=== PATIENT | female | born 1990 | race Two or more races ===

== ENCOUNTER 2020-07-24 19:39 | Emergency (ER) | payer OTHER, SELFPAY ==
--- NOTE | ~2020-07-24 | XR_ITS ---
EXAMINATION: XR FOOT, RIGHT CLINICAL INFORMATION: Redness. Pain and swelling. COMPARISON: None TECHNIQUE: AP, lateral, and oblique views of the right foot. FINDINGS: No fracture or dislocation. Alignment is anatomic. Joint spaces are maintained. Dorsal soft tissue swelling of the forefoot. No ankle joint effusion. XR/XR foot RT min 3V IMPRESSION: Prominent soft tissue swelling of the forefoot. No osseous abnormality.
[2020-07-24 20:51] VITALS: BP 121/79; PULSE 81; RESP 18; TEMP 36.8; O2SAT 96; BMI 30.2
[2020-07-24 21:19] VITALS: BP 124/84; PULSE 77; RESP 18; TEMP 37.1; O2SAT 99
[2020-07-24 22:42] VITALS: BP 114/62; PULSE 75; RESP 18; TEMP 36.6; O2SAT 99
--- NOTE | 2020-07-24 23:02 | ED_ITS ---
HPI - General Adult General Chief complaint: General Medical Stated complaint: RT LEG SWOLLEN Time Seen by Provider: 07/24/20 23:01 Source: patient Mode of arrival: ambulatory History of Present Illness HPI narrative: 30-year-old female who presents with onset of small area of itchiness between the 2nd and 3rd toes of her right foot yesterday and throughout the night reports that it has increased to cover the top of her foot with increased swelling and onset of pain. Patient states that now her foot throbs when she places her foot down and that it is very painful on weight- bearing. 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 Otherwise, patient denies any underlying medical conditions and denies any prescribed medications, or fever/chills. Patient reports headache year approximately 2 weeks ago. Related Data Previous Rx's Medication Instructions Recorded cephalexin 500 mg PO Q12H 5 Days #10 cap 07/25/20 Allergies Allergy/AdvReac Type Severity Reaction Status Date / Time No Known Allergies Allergy Verified 07/24/20 20:50 Review of Systems Review of Systems: Pertinent positives and negatives as stated in HPI 10 point review systems is otherwise negative. PMFSH Past Medical History Source: nursing notes reviewed Medical History No known health problems Social History Social History Advance Directives: No Advance Directives Information Provided: Yes Physical Exam Vital Signs: Vital Signs: Last Vital Signs Temp 97.8 F 07/24/20 22:42 Pulse 75 07/24/20 22:42 Resp 18 07/24/20 22:42 BP 114/62 07/24/20 22:42 Pulse Ox 99 07/24/20 22:42 Body Mass Index 30.2 VITAL SIGNS: Reviewed. GENERAL: Well developed, well nourished, in no acute distress. HEAD: Normocephalic/atraumatic, EYES: PERRLA, EOMI OROPHARYNX: no oral lesions noted, posterior pharynx clear NECK: Supple, no adenopathy LUNGS: Normal breath sounds. No adventitious sounds or accessory muscle use. SpO2<99> CARDIOVASCULAR: Regular rate and rhythm without noted murmurs ABDOMEN: Soft, non-tender, non-distended with bowel sounds. RIGHT FOOT: Significant erythema, swelling to dorsal aspect of the foot with tenderness on palpation when squeezing across the MCPs as well as palpation across the dorsum, but denies any pain on palpation plantar/calcaneal/malleoli palpation, no evidence of skin breaks NEUROLOGIC: Alert and oriented x 4. Course Course Course Narrative: 30-year-old female with history and clinical presentation suggestive Cortez's neuroma,cellulitis. Review of imaging negative for any acute findings of bony abnormalities such as fractures or dislocations. Medical Decision Making Lab Data Labs: Lab Results 07/24/20 Range/Units 23:26 Urine Test NEGATIVE (NEGATIVE) Discharge Plan Discharge Clinical Impression: Cellulitis of foot Patient Disposition: Home, Self-Care Instructions: Cellulitis (ED) Additional Instructions: Isfz-lnu-phgorui Tylenol/ibuprofen as directed on the outside packaging for pain control. Application of ice for 5-10 minutes on unexposed skin, 3 to 4 times a day. Keep extremity elevated when possible and wear open shoes such as flip- flops/crocs. Follow-up with your primary care provider on Monday morning for re-evaluation. Do not hesitate to return to the emergency department should you develop any acute worsening of your symptoms. Prescriptions: New cephalexin 500 mg capsule 500 mg PO Q12H 5 Days Qty: 10 RF: 0 Referrals: Misha Cueva MD [Primary Care Provider] - 2 days (Re-evaluation of right dorsal foot cellulitis unclear etiology.)
[2020-07-24 23:38] LABS: UPreg QC Valid YES; Urine Pregnancy NEGATIVE (NEGATIVE)
[2020-07-25] MEDS: cephALEXin 500 MG CAPSULE PO (00:36)
== END 2020-07-25 00:45 | disposition home or self-care (01) ==
PROVIDERS: Emergency Provider Student in an Organized Health Care Education/Training Program; PCP Internal Medicine
DX: L03.115 Cellulitis of right lower limb (principal)
CPT/HCPCS: 73630; 81025; 99283; 99284

== ENCOUNTER 2020-11-09 09:43 | Outpatient (REF) | payer OTHER, SELFPAY ==
[2020-11-10 03:56] LABS: CT PCR NOT DETECTED (Not Detect.); NG PCR NOT DETECTED (Not Detect.)
[2020-11-10 09:40] LABS: BV Int Neg Control Negative (Negative); BV Int Pos Control Positive (Positive)
[2020-11-14 05:31] LABS: HPV 16 RNA NOT DETECTED (NOT DETECTED); HPV mRNA E6/E7 rflx Detected (Not Detected)
== END 2020-11-09 09:44 | disposition home or self-care (01) ==
LOC: HO.LAB 09:43
PROVIDERS: PCP Internal Medicine; Visit Provider Advanced Practice Midwife
DX: Z01.411 Encounter for gynecological examination (general) (routine) with abnormal findings (principal); Z11.51 Encounter for screening for human papillomavirus (HPV); Z11.3 Encounter for screening for infections with a predominantly sexual mode of transmission; R10.2 Pelvic and perineal pain; N92.6 Irregular menstruation, unspecified; Z20.2 Contact with and (suspected) exposure to infections with a predominantly sexual mode of transmission
CPT/HCPCS: 87480; 87491; 87510; 87591; 87624; 87625; 87660; 88142

== ENCOUNTER 2020-11-16 07:57 | Outpatient (REF) | payer OTHER, SELFPAY ==
[2020-11-16 09:03] LABS: MANUAL DIFF FLAG NO
[2020-11-16 09:05] LABS: Basophils Percent Auto 0.2 % (0-2); Eosinophils Absolute Auto 0.2 X10*3/uL (0.0-0.4); Eosinophils Percent Auto 2.5 % (0-4); Hematocrit 43.4 % (37-47); Hemoglobin 14.4 g/dl (12.0-16.0); Imm Gran Abs Auto 0.03 X10*3/uL (0.00-0.03); Imm Gran Pct Auto 0.5 % (0.0-0.4); Lymphocytes Absolute Auto 1.5 X10*3/uL (1.2-4.9); Lymphocytes Percent Auto 23.6 % (20-40); Mean Corpuscular HGB Conc 33.2 g/dl (31.0-35.0); Mean Corpuscular Hemoglobin 32.6 pg (27.0-33.0); Mean Corpuscular Volume 98.2 fL (80-98); Mean Platelet Volume 10.3 fL (9.4-12.3); Monocytes Absolute Auto 0.4 X10*3/uL (0.1-1.2); Monocytes Percent Auto 6.5 % (2-11); Neutrophils Absolute Auto 4.2 X10*3/uL (2.0-8.3); Neutrophils Percent Auto 66.7 % (45-73); Platelet Count 220 X10*3/uL (160-400); Red Blood Count 4.42 X10*6/uL (4.20-5.50); Red Cell Distribution Width 12.9 % (11.0-16.0); White Blood Count 6.3 X10*3/uL (4.8-10.8)
[2020-11-16 09:21] LABS: Alanine Aminotransferase 30 U/L (0-31); Albumin Level 4.4 g/dL (3.5-5.0); Alkaline Phosphatase 44 U/L (39-117); Anion Gap 13 (12-20); Aspartate Amino Transferase 19 U/L (5-31); Bilirubin Total 0.4 mg/dL (0.0-1.0); Blood Urea Nitrogen 15 mg/dL (9-16); Calcium 9.3 mg/dL (8.4-10.2); Carbon Dioxide 23 mmol/L (22-29); Chloride 106 mmol/L (96-108); Cholesterol 171 mg/dL; Estimated Glomerular Filt Rate > 60; Glucose Fasting 100 mg/dL (60-99); HDL Cholesterol 53 mg/dL; LDL Cholesterol Calculated 109 mg/dl; Potassium 4.4 mmol/L (3.3-5.1); Sodium 138 mmol/L (135-145); Triglycerides 49 mg/dL
[2020-11-16 09:42] LABS: HBc Num1 0.05 S/CO (0.00-0.79); Hepatitis B Core Antibody Nonreactive (Nonreactive); ~HepC Num1 0.08 S/CO (0.00-0.79); ~Hepatitis C Antibody Nonreactive (Nonreactive)
[2020-11-16 09:44] LABS: Thyroid Stimulating Hormone 0.57 uIU/mL (0.32-4.0)
[2020-11-16 10:02] LABS: HIV AB/AG Nonreactive (Nonreactive); HIV Num 1 0.07 S/CO (0.00-0.99)
[2020-11-18 08:30] LABS: Syphilis Screen Nonreactive (Nonreactive)
== END 2020-11-16 07:58 | disposition home or self-care (01) ==
LOC: HO.LAB 07:57
PROVIDERS: Absent Provider Internal Medicine; PCP Internal Medicine; Visit Provider Advanced Practice Midwife
DX: Z00.00 Encounter for general adult medical examination without abnormal findings (principal); E11.9 Type 2 diabetes mellitus without complications; E03.9 Hypothyroidism, unspecified; Z20.2 Contact with and (suspected) exposure to infections with a predominantly sexual mode of transmission
CPT/HCPCS: 36415; 80053; 80061; 84443; 85025; 86704; 86780; 86803; 87389

== ENCOUNTER → 2020-11-23 11:16 | Outpatient (BNVA) | payer OTHER, SELFPAY | PROVIDERS: PCP Internal Medicine; Visit Provider Advanced Practice Midwife ==

== ENCOUNTER 2020-12-10 14:41 | Outpatient (REF) | payer OTHER, SELFPAY ==
--- NOTE | ~2020-12-10 | US_ITS ---
EXAMINATION: US PELVIS CLINICAL INFORMATION: Irregular and frequent menstruation COMPARISON: None TECHNIQUE: Ultrasound of the pelvis is performed using both transabdominal and transvaginal transducers along with Doppler. Transvaginal imaging is performed due to inadequate visualization transabdominally. FINDINGS: Uterus: The uterus is anteverted and measures 7.1 x 3.4 x 3.6 cm. Endometrial thickness is normal. The double wall endometrial thickness is 0.5 mm. There is a small amount of fluid in the endocervical canal. The uterus is smooth in contour and has normal myometrial echogenicity. No visible fibroid. Adnexa: Both ovaries are visualized. There is no pelvic ascites or fluid collection. Right ovary measures 1.9 x 1.3 x 2 cm. Left ovary measures 2.8 x 1.9 x 2.8 cm. There is a small 1.7 x 1.4 x 1.8 cm left ovarian cyst. US/US pelvic and transvaginal IMPRESSION: Unremarkable exam.
== END 2020-12-10 14:42 | disposition home or self-care (01) ==
LOC: HO.US 14:41
PROVIDERS: PCP Internal Medicine; Visit Provider Advanced Practice Midwife
DX: N92.6 Irregular menstruation, unspecified (principal)
CPT/HCPCS: 76830; 76856

== ENCOUNTER 2020-12-14 10:08 | Outpatient (REF) | payer OTHER, SELFPAY | END 2020-12-14 10:09 | disposition home or self-care (01) | LOC: HO.LAB 10:08 | PROVIDERS: PCP Internal Medicine; Visit Provider Obstetrics & Gynecology | DX: R87.610 Atypical squamous cells of undetermined significance on cytologic smear of cervix (ASC-US) (principal); R87.810 Cervical high risk human papillomavirus (HPV) DNA test positive | CPT/HCPCS: 57454; 88305 ==

== ENCOUNTER → 2020-12-23 14:41 | Outpatient (BNVA) | payer OTHER, SELFPAY | PROVIDERS: PCP Internal Medicine; Visit Provider Advanced Practice Midwife ==

== ENCOUNTER → 2021-01-12 13:14 | Outpatient (BNVA) | payer OTHER, SELFPAY | PROVIDERS: PCP Internal Medicine; Visit Provider Obstetrics & Gynecology ==

== ENCOUNTER 2021-09-23 15:26 | Outpatient (REF) | payer OTHER, SELFPAY ==
[2021-09-24 07:41] LABS: HBc Num1 0.05 S/CO (0.00-0.79); HIV AB/AG Nonreactive (Nonreactive); HIV Num 1 0.07 S/CO (0.00-0.99); Hepatitis B Core Antibody Nonreactive (Nonreactive); ~HepC Num1 0.06 S/CO (0.00-0.79); ~Hepatitis C Antibody Nonreactive (Nonreactive)
[2021-09-24 08:13] LABS: Syphilis Screen Nonreactive (Nonreactive)
[2021-09-24 09:17] LABS: BV Int Neg Control Negative (Negative); BV Int Pos Control Positive (Positive)
[2021-09-24 09:34] LABS: CT PCR NOT DETECTED (Not Detect.); NG PCR NOT DETECTED (Not Detect.)
== END 2021-09-23 15:27 | disposition home or self-care (01) ==
LOC: HO.LAB 15:26
PROVIDERS: PCP Internal Medicine; Visit Provider Advanced Practice Midwife
DX: N76.0 Acute vaginitis (principal); Z11.3 Encounter for screening for infections with a predominantly sexual mode of transmission; Z11.8 Encounter for screening for other infectious and parasitic diseases; Z11.4 Encounter for screening for human immunodeficiency virus [HIV]; Z11.59 Encounter for screening for other viral diseases
CPT/HCPCS: 36415; 86704; 86780; 86803; 87389; 87480; 87491; 87510; 87591; 87660

== ENCOUNTER 2022-08-22 15:37 | Outpatient (REF) | payer OTHER, SELFPAY ==
[2022-08-25 09:23] LABS: HPV mRNA E6/E7 rflx Not Detected (Not Detected)
== END 2022-08-22 15:38 | disposition home or self-care (01) ==
LOC: HO.LNP 15:37
PROVIDERS: PCP Internal Medicine; Visit Provider Obstetrics & Gynecology
DX: Z01.419 Encounter for gynecological examination (general) (routine) without abnormal findings (principal); Z11.51 Encounter for screening for human papillomavirus (HPV); N87.0 Mild cervical dysplasia
CPT/HCPCS: 87624; 88142

== ENCOUNTER 2023-06-09 10:43 | Outpatient (AMB) | payer OTHER, SELFPAY ==
[2023-06-09 10:45] VITALS: BP 98/58; BMI 24.6
--- NOTE | 2023-06-09 10:45 | MHC.PC.OV ---
Vital Signs 06/09/23 10:45 Height 5 ft Weight 126 lb BMI 24.6 BP 98/58 L Blood Pressure Location Lt brachial Position Sitting Pulse Source Pulse Oximeter Oxygen Delivery Method Room Air Intake Visit Reasons: Annual exam needed and swollen pinky toe Assistant Football Coach Required: No Non Food Receiving Clerk: Not Required per policy Accompanied by: Self / Same As Patient Allergies No Known Allergies Allergy (Verified 06/09/23 10:45) Tobacco use date assessed: 06/09/23 Dental Screening Dental Screen Date: 06/09/23 Did you have a dental visit in the last 12 months?: No Did you have a dental problem in the last 6 months where you did not have access to dental care?: No Was dental information given to patient?: Patient has dentist HPI Annual exam needed and swollen pinky toe HPI Details healthy [facility] Medical History (Updated 06/12/23 @ 09:29 by Misha Cueva MD) Dysplasia of cervix, low grade (KRISTIAN 1) Left ovarian cyst No known health problems Surgical History History of wisdom tooth extraction Social History (Updated 08/22/22 @ 15:48 by Ai Martino CMA) Housing: Condominium Alcohol intake: current Alcohol intake frequency: a few times a week Patient Tobacco Use Status: Current everyday Tobacco user Cigarettes Per Day: 10 e-Cigarette/Vaping Use: Never Used Second Hand Smoke Exposure: No service: No Current occupational status: employed Sexual orientation: Lesbian/Das/Homosexual Gender identity: Female Cognitive needs: No Hearing needs: No Vision needs: Yes (glasses) Female Reproductive History Menstrual Age of Menarche: 10 Questionnaire PHQ-9 Over the last 2 weeks, how often have you been bothered by any of the following problems? 1. Little interest or pleasure in doing things: nearly every day 2. Feeling down, depressed, or hopeless: nearly every day 3. Trouble falling or staying asleep, or sleeping too much: nearly every day 4. Feeling tired or having little energy: nearly every day 5. Poor appetite or overeating: nearly every day 6. Feeling bad about yourself - or that you are a failure or have let yourself or your family down: more than half the days 7. Trouble concentrating on things, such as reading the newspaper or watching television: not at all 8. Moving or speaking so slowly that other people could have noticed. Or the opposite - being so fidgety or restless that you have been moving around a lot more than usual: nearly every day 9. Thoughts that you would be better off or of hurting yourself in some way: not at all Total score: 20 Source: Developed by Drs. Taran Hunt, Cleo Trevizo, Dixon Whaley and colleagues, with an educational ugo from [employer]. Thrive Questionnaire Date Thrive assessed: 06/09/23 I am a: Patient What is your living situation today?: I have a steady place to live Within the past 12 months, did the food you bought not last and you didn't have the money to get more?: Never true Within the past 12 months, did you worry whether your food would run out before you got money to buy more?: Never true Do you have trouble paying for medicines?: No Do you have trouble getting transportation to medical appointments?: No Do you have trouble paying your heating and electricity bill?: No Do you have trouble taking care of your child, family member or friend?: No Do you have trouble with day-to-day activities such as bathing, preparing meals, shopping, managing finances, etc.?: No Are you currently unemployed and looking for a job?: No Are you interested in more education?: No Please select the resources that you would like help with: None THRIVE Score: 0 AUDIT C Alcohol Use Questionnaire (AUDIT-C) 1. How often do you have a drink containing alcohol?: Never 3. How often do you have six or more drinks on one occasion?: Never Total Score: 0 CARLOS-7 AMB Questionnaire CARLOS-7 Date CARLOS - 7 assessed: 06/09/23 Feeling nervous, anxious, or on edge: 3 = Nearly every day Not being able to stop or control worryin = More than half the days Worrying too much about different things: 3 = Nearly every day Trouble relaxin = Nearly every day Being so restless that it is hard to sit still: 3 = Nearly every day Becoming easily annoyed or irritable: 3 = Nearly every day Feeling afraid as if something awful might happen: 0 = Not at all Total CARLOS-7 score (0-4 normal; 5-9 mild; 10-14 moderate; 15-21 severe): 17 Source: Developed by Drs. Taran Hunt, Cleo Trevizo, Dixon Whaley and colleagues, with an educational ugo from [employer]. Review of Systems Const Denies chills, Denies fatigue, Denies headache(s) and Denies weight loss Eyes Denies change in vision, Denies diplopia and Denies eye pain ENT Denies vertigo, Denies dizziness, Denies headache(s) and Denies nasal discharge Card Denies chest pain, Denies rapid heart rate and Denies dyspnea on exertion Resp Denies chest congestion, Denies cough, Denies pain with cough and Denies dyspnea on exertion GI Denies abdominal pain, Denies hematochezia and Denies change in bowel habits Musc Denies myalgias, Denies arthralgias and Denies joint swelling Skin/Breast Denies lesions and Denies unusual bruising Neuro Denies vertigo, Denies dizziness, Denies headache(s) and Denies focal weakness Endo Denies fatigue Physical exam (Primary Care) Vital Signs: Last Vital Signs BP 98/58 L 06/09/23 10:45 Oxygen Delivery Method Room Air 06/09/23 10:45 BMI result Body Mass Index 24.6 Tobacco/Smoking Status: Tobacco use Status Tobacco use date assessed 06/09/23 06/09/23 10:46 Patient Tobacco Use Status Current everyday Tobacco 06/09/23 10:46 PHQ-9: PHQ-9 Score PHQ-9: Total score 20 06/09/23 10:52 Thrive Assessment: Date of Thrive Assessment Date Thrive assessed 06/09/23 06/09/23 10:46 Const General: cooperative, healthy appearing and no acute distress Orientation/consciousness: oriented to person, oriented to place and oriented to time [facility] Head: Yes normal to inspection, Yes normocephalic and Yes atraumatic Mouth: Normal oral and palatal mucosa present and tongue normal Throat: Yes posterior oropharynx normal and Yes uvula midline Eyes General: appearance normal, both eyes and all related structures Neck Neck: Yes normal visual inspection, Yes full ROM and Yes no lymphadenopathy Thyroid: Thyroid normal Carotids: normal carotid upstroke Chest Chest palpation & inspection: normal inspection of the chest Resp Effort & Inspection: normal respiratory effort and able to speak in complete sentences Auscultation: clear to auscultation bilaterally Cardio Jugular venous distension: no JVD Palpation: normal PMI Rate: regular rate Rhythm: regular rhythm Heart sounds: S1 normal heart sound present and S2 normal heart sound present GI Inspection: Yes normal to inspection Palpation (GI): Soft to palpation and No hepatosplenomegaly present Auscultation: normal bowel sounds General: Yes no CVA tenderness Back/Spine/Pelvis Back: no CVA tenderness Skin General skin exam: no rashes or lesions noted Neuro General: oriented to person, oriented to place and oriented to time Extrem General: Yes normal to inspection and Yes full ROM Assessment and Plan Assessment & Plan (1) Physical exam: Code(s): Z00.00 - Encounter for general adult medical examination without abnormal findings Plan: stable; do labs Orders: Orders Lipid Panel 06/09/23 E78.5 - Hyperlipidemia, unspecified Thyroid Stimulating Hormone 06/09/23 E03.9 - Hypothyroidism, unspecified Complete Blood Count Auto Diff 06/09/23 D64.9 - Anemia, unspecified Comprehensive [place]. Panel Fast 06/09/23 N28.9 - Disorder of kidney and ureter, unspecified Referrals Counseling Referral F43.21 - Adjustment disorder with depressed mood Podiatry Referral M79.676 - Pain in unspecified toe(s) Coding Level of Care Code Est Pt Prev Care 18-39y(82443) Diagnoses Physical exam Z00.00 Additional Codes PHQ-9 - 97392 - PHQ-9 Billing: ([id number])
== END 2023-06-09 11:18 | disposition home or self-care (01) ==
PROVIDERS: PCP Internal Medicine; Visit Provider Internal Medicine
DX: Z00.00 Encounter for general adult medical examination without abnormal findings (principal)
CPT/HCPCS: 99395

== ENCOUNTER 2023-08-11 10:54 | Outpatient (REF) | payer OTHER, SELFPAY ==
[2023-08-11 11:07] LABS: MANUAL DIFF FLAG NO
[2023-08-11 11:54] LABS: Basophils Percent Auto 0.4 % (0-2); Eosinophils Absolute Auto 0.3 X10*3/uL (0.0-0.4); Eosinophils Percent Auto 3.3 % (0-4); Hematocrit 43.1 % (37.0-47.0); Hemoglobin 14.3 g/dl (12.0-16.0); Imm Gran Abs Auto 0.01 X10*3/uL (0.00-0.03); Imm Gran Pct Auto 0.1 % (0.0-0.4); Lymphocytes Absolute Auto 2.8 X10*3/uL (1.2-4.9); Lymphocytes Percent Auto 36.9 % (20-40); Mean Corpuscular HGB Conc 33.2 g/dl (31.0-35.0); Mean Corpuscular Hemoglobin 32.4 pg (27.0-33.0); Mean Corpuscular Volume 97.5 fL (80.0-98.0); Mean Platelet Volume 10.1 fL (9.4-12.3); Monocytes Absolute Auto 0.4 X10*3/uL (0.1-1.2); Monocytes Percent Auto 5.7 % (2-11); Neutrophils Percent Auto 53.6 % (45-73); Platelet Count 240 X10*3/uL (160-400); Red Blood Count 4.42 X10*6/uL (4.20-5.50); Red Cell Distribution Width 13.1 % (11.0-16.0); White Blood Count 7.5 X10*3/uL (4.8-10.8)
[2023-08-11 12:52] LABS: Alanine Aminotransferase 15 U/L (0-31); Albumin Level 4.5 g/dL (3.5-5.0); Alkaline Phosphatase 43 U/L (39-117); Anion Gap 13 (12-20); Aspartate Amino Transferase 17 U/L (5-31); Bilirubin Total 0.6 mg/dL (0.0-1.0); Blood Urea Nitrogen 13 mg/dL (9-16); Calcium 9.7 mg/dL (8.4-10.2); Carbon Dioxide 25 mmol/L (22-29); Chloride 106 mmol/L (96-108); Cholesterol 169 mg/dL (<200); Estimated Glomerular Filt Rate > 60; Glucose Fasting 93 mg/dL (60-99); HDL Cholesterol 45 mg/dL (>40); LDL Cholesterol Calculated 111 mg/dL (<100); Potassium 3.9 mmol/L (3.3-5.1); Sodium 140 mmol/L (135-145); Thyroid Stimulating Hormone 0.84 uIU/mL (0.32-4.0); Total Protein 7.7 g/dL (6.5-8.0); Triglycerides 68 mg/dL (<150)
== END 2023-08-11 10:55 | disposition home or self-care (01) ==
LOC: HO.LAB 10:54
PROVIDERS: PCP Internal Medicine; Visit Provider Internal Medicine
DX: E78.5 Hyperlipidemia, unspecified (principal); E03.9 Hypothyroidism, unspecified; D64.9 Anemia, unspecified; N28.9 Disorder of kidney and ureter, unspecified
CPT/HCPCS: 36415; 80053; 80061; 84443; 85025

== ENCOUNTER 2023-08-29 14:19 | Outpatient (AMB) | payer OTHER, SELFPAY ==
[2023-08-29 14:24] VITALS: BP 108/66; BMI 26.6
--- NOTE | 2023-08-29 14:24 | A.OFFVIS_ITS ---
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 No complaints. Last Pap/HPV was negative in 08/23 [facility] Medical History Dysplasia of cervix, low grade (KRISTIAN 1) Left ovarian cyst No known health problems Surgical History History of wisdom tooth extraction Social History Housing: [facility] Alcohol intake: current Alcohol intake frequency: a few times a week Patient Tobacco Use Status: Current everyday Tobacco user Cigarettes Per Day: 10 e-Cigarette/Vaping Use: Never Used Second Hand Smoke Exposure: No service: No Current occupational status: employed Sexual orientation: Lesbian/Das/Homosexual Gender identity: Female Cognitive needs: No Hearing needs: No Vision needs: Yes (glasses) Female Reproductive History Menstrual Age of Menarche: 10 Date of last menstrual period: 08/25/23 Date of last pap smear: 08/23/22 Review of Systems Const All systems reviewed & are unremarkable except as noted in HPI and below Card Reports as per HPI Resp Reports as per HPI GI Reports as per HPI and Reports no additional complaints Reports as per HPI Physical Exam Vital Signs: Last Vital Signs BP 108/66 08/29/23 14:24 BMI result Body Mass Index 26.6 Const General: cooperative, healthy appearing and comfortable Chest Chest palpation & inspection: normal inspection of the chest and normal palpation of entire chest wall Breast/axilla inspection: normal inspection of the breasts and normal inspection of the axillae Breast/axilla palpation: normal palpation of the breasts, normal palpation of the axillae and no axillary lymphadenopathy Resp Effort & Inspection: normal respiratory effort Auscultation: clear to auscultation bilaterally Percussion: percussion normal Cardio Palpation: normal PMI Rate: regular rate Rhythm: regular rhythm Heart sounds: no murmurs and no rubs Peripheral pulses: Peripheral pulses 2+ throughout GI Inspection: Yes normal to inspection Palpation (GI): Soft to palpation, nontender, no guarding, not rigid and No hepatosplenomegaly present Percussion: Yes normal to percussion Auscultation: normal bowel sounds Rectal Exam - Female: deferred General: Yes bladder normal to palpation External Female Exam: No lesion Speculum Exam - Vagina: normal appearance of the vagina, normal palpation, normal vaginal discharge and not erythematous Speculum Exam - Cervix: normal appearance of the cervix and normal palpation Bimanual exam- vagina & uterus: normal bimanual exam, normal palpation, uterine size normal, bladder normal to palpation, consistency normal and normal palpation Bimanual Exam- Adnexa, other: normal adnexae, no masses and no tenderness Assessment & Plan Assessment & Plan (1) Well woman exam: Code(s): Z01.419 - Encounter for gynecological examination (general) (routine) without abnormal findings Category: Medical Plan: Cotesting not indicated this year. Counseled the patient about the recommended dietary allowance of 1000 mg of Calcium & 600 IU of vitamin D. The patient was instructed to perform monthly self-breast exams and to schedule an annual exam in a year; All questions answered and the patient verbalized understanding. Instructed the patient to schedule annual exam in a year Coding Level of Care Code Est Pt Prev Care 18-39y(58697) Diagnoses Well woman exam Z01.419
== END 2023-08-29 14:43 | disposition home or self-care (01) ==
PROVIDERS: Visit Provider Obstetrics & Gynecology
DX: Z01.419 Encounter for gynecological examination (general) (routine) without abnormal findings (principal)
CPT/HCPCS: 99395

== ENCOUNTER → 2023-08-29 14:19 | Outpatient (BNVA) | payer OTHER, SELFPAY | PROVIDERS: Visit Provider Obstetrics & Gynecology ==

== ENCOUNTER 2023-09-15 10:22 | Outpatient (AMB) | payer OTHER, SELFPAY ==
[2023-09-15 10:24] VITALS: BP 112/74; PULSE 70; O2SAT 98; BMI 25.4
--- NOTE | 2023-09-15 10:24 | A.OFFPC_ITS ---
Vital Signs 09/15/23 10:24 Height 5 ft Weight 130 lb BMI 25.4 BP 112/74 Blood Pressure Location Lt brachial Position Sitting Pulse 70 Pulse Source Pulse Oximeter Pulse Oximetry (%) 98 Oxygen Delivery Method Room Air Intake Visit Reasons: 3mth f/u Labs Food And Beverage Cashier Required: No Internet Webmaster: Not Required per policy Accompanied by: Self / Same As Patient Allergies No Known Allergies Allergy (Verified 09/15/23 10:24) Medication List - Last Reconciled 09/15/23 by Misha Cueva MD No Known Home Meds Tobacco use date assessed: 06/09/23 Dental Screening Dental Screen Date: 06/09/23 HPI 3mth f/u Labs HPI Details grief reaction due to in family; coping well and rx not needed PFSH Medical History Dysplasia of cervix, low grade (KRISTIAN 1) Left ovarian cyst No known health problems Surgical History History of wisdom tooth extraction Social History Housing: Condominium Alcohol intake: current Alcohol intake frequency: a few times a week Patient Tobacco Use Status: Current everyday Tobacco user Cigarettes Per Day: 10 e-Cigarette/Vaping Use: Never Used Second Hand Smoke Exposure: No service: No Current occupational status: employed Sexual orientation: Lesbian/Das/Homosexual Gender identity: Female Cognitive needs: No Hearing needs: No Vision needs: Yes (glasses) Female Reproductive History Menstrual Age of Menarche: 10 Questionnaire Thrive Questionnaire Date Thrive assessed: 06/09/23 CARLOS-7 AMB Questionnaire CARLOS-7 Date CARLOS - 7 assessed: 06/09/23 Source: Developed by Drs. Taran Hunt, Cleo Trevizo, Dixon Whaley and colleagues, with an educational ugo from [employer]. Review of Systems Const Denies chills, Denies headache(s) and Denies weight loss ENT Denies headache(s) Card Denies chest pain, Denies syncope, Denies irregular heart rhythm and Denies dyspnea Resp Denies chest congestion, Denies cough and Denies dyspnea GI Denies abdominal pain, Denies change in stool character, Denies nausea and Denies vomiting Musc Denies deformity and Denies joint swelling Neuro Denies syncope and Denies headache(s) Physical exam (Primary Care) Vital Signs: Last Vital Signs Pulse 70 09/15/23 10:24 BP 112/74 09/15/23 10:24 Pulse Ox 98 09/15/23 10:24 Oxygen Delivery Method Room Air 09/15/23 10:24 BMI result Body Mass Index 25.4 Tobacco/Smoking Status: Tobacco use Status Tobacco use date assessed 06/09/23 09/15/23 10:25 Patient Tobacco Use Status Current everyday Tobacco 09/15/23 10:25 e-Cigarette/Vaping Use Never Used 09/15/23 10:25 Thrive Assessment: Date of Thrive Assessment Date Thrive assessed 06/09/23 09/15/23 10:25 Const General: cooperative, comfortable, no acute distress and alert Neck Neck: Yes no lymphadenopathy Thyroid: Thyroid normal Resp Effort & Inspection: normal respiratory effort Auscultation: clear to auscultation bilaterally Percussion: percussion normal Cardio Jugular venous distension: no JVD Palpation: normal PMI Rate: regular rate Rhythm: regular rhythm Heart sounds: S1 normal heart sound present and S2 normal heart sound present GI Inspection: Yes normal to inspection Palpation (GI): No hepatosplenomegaly present Skin General skin exam: no rashes or lesions noted Extrem General: Yes no clubbing, cyanosis or edema Assessment and Plan Assessment & Plan (1) Grief reaction: Code(s): F43.21 - Adjustment disorder with depressed mood Plan: observe Coding Level of Care Code Est Pt Level 3 (63946) Diagnoses Grief reaction F43.21
== END 2023-09-15 10:37 | disposition home or self-care (01) ==
PROVIDERS: PCP Internal Medicine; Visit Provider Internal Medicine
DX: F43.21 Adjustment disorder with depressed mood (principal)
CPT/HCPCS: 99213

== ENCOUNTER 2025-01-02 17:47 | Emergency (ER) | payer OTHER, SELFPAY ==
--- OUTSIDE RECORDS SUMMARY | 2023-11-03 06:30 | XMS_ITS ---
Author Organization [facility] Address [address] [place] [address] Care Team Providers Care Placer Miner Name Role Phone Hammad LOPEZ, Misha Primary Care Provider Seg[place] Cheryl Patino Unavailable [phone] REASON FOR VISIT no ppwrk Encounters Encounter Location Date Provider Diagnosis [facility] [address] [place] [address] 11/03/2023 Cheryl Salazar Plan Of Treatment No Information Progress Notes * Alisha SHAIKHDOB:1990 (34 yo F)Acc No.[id number]:11/03/2023 Progress Notes Patient: Sofiya BALTAZARcayla Provider: Linus Salazar DPM :1990 A ge:33 Y S ex:Female Date:11/03/2023 Address:[address] [place] [address], [address] , [facility] Pcp:Misha Cueva MD Subjective: * Chief Complaints: * 1 . No ppwrk. * Medical History: Objective: * Vitals: Assessment: Plan: * Treatment: * Images: * The named appointment provid er may or may not be the originator of this progress note, and it is not deemed complete until electronically signed by the appointment provider. Sign off status: Pending * Provider: Linus Salazar DPM Date: 0 11/03/2023 Generated for Dennis yuen/Juan/eTransmitting on: 06:53 PM EDT
--- NOTE | ~2025-01-02 | CT_ITS ---
CLINICAL HISTORY: new siezure. brain mass? CT head without contrast Comparison: None provided Findings: No intra-axial mass, midline shift, hydrocephalus, or acute hemorrhage. No significant atrophy-like change or white matter disease. There is no sinus or mastoid fluid. The orbits are within normal limits. There is no acute fracture. IMPRESSION: 1. No acute intracranial findings. This document has been electronically signed by: Vimal Knox MD on 01/02/2025 19:33:00
[2025-01-02 18:00] VITALS: BP 104/66; PULSE 79; RESP 18; TEMP 37; O2SAT 99; BMI 19.4
--- NOTE | 2025-01-02 18:01 | ECG_ITS ---
Test Reason : SEIZURE VS SYNCOPE Blood Pressure : */* mmHG Vent. Rate : 62 BPM Atrial Rate : 62 BPM P-R Int : 158 ms QRS Dur : 88 ms QT Int : 400 ms P-R-T Axes : 61 86 66 degrees QTcB Int : 406 ms Normal sinus rhythm Normal ECG When compared with ECG of 21-Aug-2017 11:05, No significant change was found Referred By: Guanaco Walton Electronically Signed By: CHUCK LIAO
--- NOTE | 2025-01-02 18:03 | ED.GENADULT ---
HPI - General Adult General Chief complaint: Neuro Symptoms/Deficit Stated complaint: ?seizure, fall Time Seen by Provider: 01/02/25 19:25 History of Present Illness HPI narrative: Patient is a 34-year-old female with a history of going to the bathroom for shower. Suddenly felt very lightheaded. Then collapsed. Had a blank Skin stair. Patient's upper body went stiff. Eyes rolled back. There was incontinence. There was no seizure-like activity noted. No history of seizure in the past. Does use marijuana. Does not think she is . No history of sudden deaths in the family. No history of diabetes hypertension high cholesterol smoking mi. patient is from home. No leg swelling. No history of blood clots. No bloody stool. No vaginal bleeding. No pain on urination. Related Data Home Medications ?Medication ?Instructions ?Recorded ?Confirmed No Known Home Meds 08/29/23 09/15/23 Allergies Allergy/AdvReac Type Severity Reaction Status Date / Time No Known Allergies Allergy Verified 01/02/25 18:04 Review of Systems Review of Systems: Positive syncopal episode Yes all other systems are reviewed and are negative [facility] Past Medical History Attestation statement: The following information was validated with the patient. Medical History Dysplasia of cervix, low grade (KRISTIAN 1) Left ovarian cyst No known health problems Surgical History History of wisdom tooth extraction Social History Social History Housing: Condominium Alcohol intake: current Alcohol intake frequency: a few times a week Patient Tobacco Use Status: Current everyday Tobacco user Cigarettes Per Day: 10 e-Cigarette/Vaping Use: Never Used Second Hand Smoke Exposure: No Advance Directives: No Advance Directives Information Provided: No service: No Current occupational status: employed Sexual orientation: Lesbian/Das/Homosexual Gender identity: Female Cognitive needs: No Hearing needs: No Vision needs: Yes (glasses) Physical Exam ED Exam Exam: Appearance: Alert. Oriented X3. No acute distress. Eyes: Pupils equal, round and reactive to light. ENT: Pharynx normal. Neck: Normal inspection. Neck supple. No lymph nodes noted. No crepitus CVS: Normal heart rate and rhythm. Pulses normal. Normal S1 and S2 Respiratory: No respiratory distress. Breath sounds normal. No Wheezing. No rales Abdomen: Soft and nontender. No rigidity. No distention. good BS x4 Skin: Skin warm and dry. Normal skin color. Normal skin turgor. Extremities: No lower extremity edema. Neurovascular intact to all extremities. No Lacerations. No Rash Neuro: Oriented X 3. No motor deficit. No sensory deficit. Moving all extermities. No slurred speech Vital Signs: Vital Signs - 24 hr 01/02/25 18:00 01/02/25 18:50 01/02/25 21:17 Temperature 98.6 F 97.6 F Pulse Rate 79 69 66 Respiratory Rate 18 17 Blood Pressure 104/66 113/54 L 95/54 L Pulse Oximetry 99 97 Oxygen Delivery Method Room Air Room Air 01/02/25 21:17 01/02/25 21:17 Temperature Pulse Rate 78 85 Respiratory Rate Blood Pressure 97/54 L 95/66 Pulse Oximetry Oxygen Delivery Method BMI result Body Mass Index 19.4 Course Course Course Narrative: RME: 34 yold female presents to the ED for evaluation for seizure vs syncope. patient's family member states patient passed out on toilet and than fell unto the floor and starting shaking, foaming at the mouth, grunting, and urinary incontinence. Patient presently is A0x3. labs, EKG, head CT scan ordered. Medical Decision Making Medical Decision Making [facility] Narrative: Patient had question seizure versus syncopal episode. Had dizziness lightheadedness then had the episode. She was out. Patient had no focal weakness. Did not have any jerking like motion but did have incontinence. Can not exclude the possibility of seizure versus syncope. Will have patient follow-up with neurology and with cardiology. Patient well-appearing no distress clinically well-appearing question vasovagal as patient was standing at the time taking a shower. Will discharge patient home close follow-up on an outpatient basis test was negative troponin was negative. My interpretation patient's EKG showed a sinus rhythm heart rate is 60 GA QRS QTC normal no acute ST segment elevation. Differential Diagnosis Differential Diagnoses: The differential diagnosis associated with the presentation includes ACS, PE, DVT, seizure, vasovagal syncope Admission/Observation Consideration of admission/observation: Escalation of care including admission/observation considered Lab Data [facility] Lab Attestation statement: I reviewed the patient's lab results. 01/02/25 18:26 01/02/25 18:26 Labs: Lab Results 01/02/25 01/02/25 01/02/25 Range/Units 18:26 18:44 21:53 WBC 7.4 (4.8-10.8) X10*3/uL RBC 4.43 (4.20-5.50) X10*6/uL Hgb 14.0 (12.0-16.0) g/dl Hct 41.3 (37.0-47.0) % MCV 93.2 (80.0-98.0) fL MCH 31.6 (27.0-33.0) pg MCHC 33.9 (31.0-35.0) g/dl RDW 12.9 (11.0-16.0) % Plt Count 198 (160-400) X10*3/uL MPV 9.9 (9.4-12.3) fL Immature Gran % (Auto) 0.3 (0.0-0.4) % Neut % (Auto) 61.5 (45-73) % Lymph % (Auto) 30.6 (20-40) % Childress % (Auto) 4.9 (2-11) % Eos % (Auto) 2.3 (0-4) % Baso % (Auto) 0.4 (0-2) % Lymph # (Auto) 2.3 (1.2-4.9) X10*3/uL Childress # (Auto) 0.4 (0.1-1.2) X10*3/uL Eos # (Auto) 0.2 (0.0-0.4) X10*3/uL Baso # (Auto) 0.0 (0.0-0.2) X10*3/uL Abs Immat Gran (auto) 0.02 (0.00-0.03) X10*3/uL Absolute Neuts (auto) 4.5 (2.0-8.3) x10*3/uL Absolute Nucleated RBC 0.000 (0.0-0.012) X10*3/uL Nucleated RBC % (auto) 0.0 (0.0-0.2) /100WBC PT 11.9 (10.9-12.4) SEC INR 1.0 (0.9-1.1) APTT 31.1 (26.7-34.1) SEC Sodium 139 (135-145) mmol/L Potassium 3.8 (3.3-5.1) mmol/L Chloride 104 (96-108) mmol/L Carbon Dioxide 27 (22-29) mmol/L Anion Gap 12 (12-20) BUN 10 (9-16) mg/dL Creatinine 0.82 (0.5-1.4) mg/dL Estim Creat Clear Calc 86.6 Estimated GFR > 60 POC Glucose 97 (60-115) mg/dL Random Glucose 93 (60-115) mg/dL Calcium 9.9 (8.4-10.2) mg/dL Magnesium 2.2 (1.6-2.6) mg/dL Total Bilirubin 0.4 (0.0-1.0) mg/dL AST 22 (5-31) U/L ALT 19 (0-31) U/L Alkaline Phosphatase 46 (39-117) U/L Troponin I High Sens < 2.7 (<3.5-17.0) ng/L Total Protein 7.5 (6.5-8.0) g/dL Albumin 4.8 (3.5-5.0) g/dL Beta HCG, Quant < 2 mIU/mL Urine Color Yellow Urine Appearance Clear Urine pH 7.0 (5.0-9.0) Ur Specific Mclain 1.015 (1.005-1.025) Urine Protein Negative (Neg-Trace) mg/dL Urine Glucose (UA) Negative (Negative) mg/dL Urine Ketones Trace (Negative) mg/dL Urine Blood Negative (Negative) Urine Nitrite Negative (Negative) Ur Leukocyte Esterase Negative (Negative) Independent Interpretation I performed an independent interpretation of an: EKG (My interpretation patient's EKG as above) and CT Scan (CT head was negative no bleed) Radiology Impression Discussion of test interpretation with radiology: I have reviewed the radiologist's reading. Independent Historian Clinical information obtained from an independent historian. History obtained from or confirmed by: Spouse External Record Review External record reviewed: Office record Chronic Conditions Syncope versus seizure Social Determinants Patient?s care significantly limited by Social Determinants of Health including: Problems related to primary support group Discharge Plan Discharge Clinical Impression: Syncope, Seizure Patient Disposition: Home, Self-Care Instructions: New-Onset Seizure in Adults (ED), Syncope (DC) Additional Instructions: No driving. No swimming. No activities that put her in danger if he ever seizure that time. Hydrate yourself. Follow-up with Neurology. Follow-up with cardiology for the syncopal, seizure episode Prescriptions: No Action No Known Home Meds Referrals: Jean-Claude Berrios MD [Physician, Cardiology] - 01/06/25 Richi Angulo MD [Physician, Neurology] - 01/06/25 Print Language: Ethiopian
[2025-01-02 18:48] LABS: Glucose, Whole Blood 97 mg/dL (60-115)
[2025-01-02 18:48] LABS: MANUAL DIFF FLAG NO
[2025-01-02 18:49] LABS: Hematocrit 41.3 % (37.0-47.0); Hemoglobin 14.0 g/dl (12.0-16.0); Imm Gran Abs Auto 0.02 X10*3/uL (0.00-0.03); Imm Gran Pct Auto 0.3 % (0.0-0.4); Lymphocytes Absolute Auto 2.3 X10*3/uL (1.2-4.9); Mean Corpuscular HGB Conc 33.9 g/dl (31.0-35.0); Mean Corpuscular Hemoglobin 31.6 pg (27.0-33.0); Mean Corpuscular Volume 93.2 fL (80.0-98.0); NRBC Abs Auto 0.000 X10*3/uL (0.0-0.012); NRBC Pct Auto 0.0 /100WBC (0.0-0.2); Platelet Count 198 X10*3/uL (160-400); Red Blood Count 4.43 X10*6/uL (4.20-5.50); White Blood Count 7.4 X10*3/uL (4.8-10.8)
[2025-01-02 18:50] VITALS: BP 113/54; PULSE 69; RESP 17; TEMP 36.4; O2SAT 97
--- OUTSIDE RECORDS SUMMARY | 2025-01-02 18:53 | XMS_ITS | Patient Health Record ---
Author Organization [facility] Address [address] [place] [address] Care Team Providers Care Shipping And Receiving Clerk Name Role Phone Misha Cueva MD Primary Care Provider Cheryl Aguirre Unavailable [phone] Reason For Referral No Information Plan Of Treatment No Information Insurance Providers Payer Name Payer Address Payer Phone Subscriber Number Group Number Insured Name Patient Relationship to Insured Coverage Start Date Coverage End Date [facility] [address] [place], [place] [id number] Alisha Shaikh Self - patient is the insured
[2025-01-02 18:58] LABS: INTERNATIONAL NORM RATIO 1.0 (0.9-1.1); Prothrombin Time 11.9 SEC (10.9-12.4)
[2025-01-02 19:01] LABS: Partial Thromboplastin Time 31.1 SEC (26.7-34.1)
[2025-01-02 19:10] LABS: Troponin-I High Sensitivity < 2.7 ng/L (<3.5-17.0)
[2025-01-02 19:11] LABS: Alanine Aminotransferase 19 U/L (0-31); Albumin Level 4.8 g/dL (3.5-5.0); Alkaline Phosphatase 46 U/L (39-117); Anion Gap 12 (12-20); Aspartate Amino Transferase 22 U/L (5-31); Blood Urea Nitrogen 10 mg/dL (9-16); Calcium 9.9 mg/dL (8.4-10.2); Carbon Dioxide 27 mmol/L (22-29); Chloride 104 mmol/L (96-108); Creatinine Clr Calc Pharmacy 86.6; Estimated Glomerular Filt Rate > 60; Magnesium 2.2 mg/dL (1.6-2.6); Potassium 3.8 mmol/L (3.3-5.1); Sodium 139 mmol/L (135-145); Total Protein 7.5 g/dL (6.5-8.0)
[2025-01-02 21:17] VITALS: BP 95/54; BP 95/66; BP 97/54; PULSE 66; PULSE 78; PULSE 85
--- NOTE | 2025-01-02 21:17 | PC.NURSE ---
denies symptoms when standing for orthos
[2025-01-02 22:08] LABS: Appearance Urine Clear; Glucose Urine UA Negative (Negative); PH 7.0 (5.0-9.0); Specific Gravity - Urine 1.015 (1.005-1.025)
[2025-01-02 22:36] VITALS: BP 94/57; PULSE 64; RESP 16; O2SAT 99
[2025-01-02 23:00] VITALS: BP 94/57; PULSE 64; RESP 16; TEMP 36.6; O2SAT 99
== END 2025-01-02 23:05 | disposition home or self-care (01) ==
PROVIDERS: Physician Assistant; Emergency Provider Emergency Medicine Emergency Medical Services
DX: R55 Syncope and collapse (principal); R56.9 Unspecified convulsions; R10.22 Pelvic and perineal pain left side; R32 Unspecified urinary incontinence; R42 Dizziness and giddiness; F12.90 Cannabis use, unspecified, uncomplicated; F17.210 Nicotine dependence, cigarettes, uncomplicated; Z79.899 Other long term (current) drug therapy
CPT/HCPCS: 36415; 70450; 80053; 81003; 82947; 83735; 84484; 84702; 85025; 85610; 85730; 93005; 99284; 99285

== ENCOUNTER → 2025-01-02 18:01 | Outpatient (BNV) | payer OTHER, SELFPAY | PROVIDERS: Emergency Provider Emergency Medicine Emergency Medical Services; Visit Provider Internal Medicine | DX: R42 Dizziness and giddiness (principal) | CPT/HCPCS: 93010 ==

== ENCOUNTER → 2025-01-02 18:06 | Outpatient (BNV) | payer OTHER, SELFPAY | PROVIDERS: Emergency Provider Emergency Medicine Emergency Medical Services; Visit Provider Specialist | DX: R56.9 Unspecified convulsions (principal) | CPT/HCPCS: 70450 ==

== ENCOUNTER 2025-01-24 14:27 | Outpatient (AMB) | payer OTHER, SELFPAY ==
--- OUTSIDE RECORDS SUMMARY | 2023-11-03 06:30 | XMS_ITS ---
Author Organization [facility] Address [address] [place] [address] Care Team Providers Care Freelance Patternmaker Name Role Phone Hammad LOPEZ, Misha Primary Care Provider Segund[place] Cheryl Patino Unavailable [phone] REASON FOR VISIT no ppwrk Encounters Encounter Location Date Provider Diagnosis [facility] [address] [place] [address] 11/03/2023 Cheryl Salazar Plan Of Treatment No Information Progress Notes * Alisha SHAIKHDOB:1990 (34 yo F)Acc No.[id number]:11/03/2023 Progress Notes Patient: Sofiya BALTAZARcayla Provider: Linus Salazar DPM :1990 A ge:33 Y S ex:Female Date:11/03/2023 Address:[address] [place] [address], [address] , [facility] Pcp:Misha Cueva MD Subjective: * Chief Complaints: [...] 0 11/03/2023 Generated for Dennis yuen/Juan/eTransmitting on: 04:21 PM EDT
[2025-01-24 14:33] VITALS: BP 98/64; PULSE 76; RESP 18; TEMP 36.5; O2SAT 99; BMI 19.8
--- NOTE | 2025-01-24 14:33 | A.OFFPC_ITS ---
Vital Signs 01/24/25 14:33 Height 5 ft 8 in Weight 130 lb 4 oz BMI 19.8 BP 98/64 Blood Pressure Location Lt brachial Position Sitting Respiration 18 Pulse 76 Pulse Source Pulse Oximeter Temp 97.7 F Temp Source Temporal Artery Scan Pulse Oximetry (%) 99 Oxygen Delivery Method Room Air Intake Visit Reasons: [facility] 01/02 seizure? Registered Occupational Therapist Required: No Accompanied by: Self / Same As Patient Allergies No Known Allergies Allergy (Verified 01/24/25 14:34) Tobacco use date assessed: 01/24/25 Dental Screening Dental Screen Date: 01/24/25 Did you have a dental visit in the last 12 months?: Yes Did you have a dental problem in the last 6 months where you did not have access to dental care?: No Was dental information given to patient?: Patient has dentist HPI HPI Comments History of Present Illness Details 34 y/o Female patient who [facility]. She was admitted at [facility] on 01/02/25 for an evaluation of a Fall. Pt reports suddenly felt lightheaded, then collapsed on the ground. Reports that her body went Stiff and eyes rolled back. She did have an episode of incontinence. No history of seizures. Does smoke alot of marijuana. Pt denies h/o DM, HTN or high cholesterol. She was advised to follow up with Neurology and Cardiology due to Syncope episode. [facility] Medical History Dysplasia of cervix, low grade (KRISTIAN 1) Left ovarian cyst No known health problems Surgical History History of wisdom tooth extraction Social History Housing: Condominium Alcohol intake: current Alcohol intake frequency: a few times a week Patient Tobacco Use Status: Current everyday Tobacco user Cigarettes Per Day: 10 e-Cigarette/Vaping Use: Never Used Second Hand Smoke Exposure: No Substance Use Type: Marijuana service: No Current occupational status: employed Sexual orientation: Lesbian/Das/Homosexual Gender identity: Female Cognitive needs: No Hearing needs: No Vision needs: Yes (glasses) Female Reproductive History Menstrual Age of Menarche: 10 Questionnaire PHQ-9 Over the last 2 weeks, how often have you been bothered by any of the following problems? 1. Little interest or pleasure in doing things: nearly every day 2. Feeling down, depressed, or hopeless: several days 3. Trouble falling or staying asleep, or sleeping too much: nearly every day 4. Feeling tired or having little energy: nearly every day 5. Poor appetite or overeating: several days 6. Feeling bad about yourself - or that you are a failure or have let yourself or your family down: several days 7. Trouble concentrating on things, such as reading the newspaper or watching television: several days 8. Moving or speaking so slowly that other people could have noticed. Or the opposite - being so fidgety or restless that you have been moving around a lot more than usual: nearly every day 9. Thoughts that you would be better off or of hurting yourself in some way: not at all Total score: 16 Source: Developed by Drs. Taran Hunt, Cleo Trevizo, Dixon Whaley and colleagues, with an educational ugo from [employer]. Thrive Questionnaire Date Thrive assessed: 06/09/23 I am a: Patient What is your living situation today?: I have a steady place to live Within the past 12 months, did the food you bought not last and you didn't have the money to get more?: I choose not to answer this question Within the past 12 months, did you worry whether your food would run out before you got money to buy more?: I choose not to answer this question Do you have trouble paying for medicines?: I choose not to answer this question Do you have trouble getting transportation to medical appointments?: I choose not to answer this question Do you have trouble paying your heating and electricity bill?: I choose not to answer this question Do you have trouble taking care of your child, family member or friend?: I choose not to answer this question Do you have trouble with day-to-day activities such as bathing, preparing meals, shopping, managing finances, etc.?: I choose not to answer this question Are you currently unemployed and looking for a job?: No Are you interested in more education?: No Please select the resources that you would like help with: None Currently or been in a relationship where the following occur: No concerns reported THRIVE Score: 0 AUDIT C Alcohol Use Questionnaire (AUDIT-C) 1. How often do you have a drink containing alcohol?: Never Total Score: 0 CARLOS-7 AMB Questionnaire CARLOS-7 Date CARLOS - 7 assessed: 06/09/23 Feeling nervous, anxious, or on edge: 3 = Nearly every day Not being able to stop or control worryin = Nearly every day Worrying too much about different things: 3 = Nearly every day Trouble relaxin = Nearly every day Being so restless that it is hard to sit still: 3 = Nearly every day Becoming easily annoyed or irritable: 3 = Nearly every day Feeling afraid as if something awful might happen: 0 = Not at all Total CARLOS-7 score (0-4 normal; 5-9 mild; 10-14 moderate; 15-21 severe): 18 Source: Developed by Drs. Taran Hunt, Cleo Trevizo, Dixon Whaley and colleagues, with an educational ugo from [employer]. Review of Systems Const All systems reviewed & are unremarkable except as noted in HPI and below Physical exam (Primary Care) Vital Signs: Last Vital Signs Temp 97.7 F 01/24/25 14:33 Pulse 76 01/24/25 14:33 Resp 18 01/24/25 14:33 BP 98/64 01/24/25 14:33 Pulse Ox 99 01/24/25 14:33 Oxygen Delivery Method Room Air 01/24/25 14:33 BMI result Body Mass Index 19.8 Tobacco/Smoking Status: Tobacco use Status Tobacco use date assessed 01/24/25 01/24/25 14:34 Patient Tobacco Use Status Current everyday Tobacco 01/24/25 14:34 e-Cigarette/Vaping Use Never Used 01/24/25 14:34 PHQ-9: PHQ-9 Score PHQ-9: Total score 16 01/24/25 14:34 Thrive Assessment: Date of Thrive Assessment Date Thrive assessed 06/09/23 01/24/25 14:34 Currently or been in a relationship where the following occur: No concerns reported Const General: comfortable and no acute distress Nutritional Appearance: well nourished Orientation/consciousness: patient oriented x3 Resp Effort & Inspection: normal respiratory effort Auscultation: clear to auscultation bilaterally Cardio Heart sounds: S1 normal heart sound present and S2 normal heart sound present Skin Nails: yellow and thickened (B/L Toe Nails) Neuro General: patient oriented x3 and gait normal Psych Speech and movement: Normal speech and movement present Coding Level of Care Code Est Pt Level 4 (90922) Diagnoses Syncope R55 Seizure R56.9 Time Spent (min) 20 Assessment & Plan Assessment & Plan (1) Syncope: Code(s): R55 - Syncope and collapse Category: Medical Plan: Stable. Placed referral to cardiology. (2) Seizure: Code(s): R56.9 - Unspecified convulsions Category: Medical Plan: Stable. Placed referral to Neurology. Orders: Referrals Neurology Referral R56.9 - Unspecified convulsions Podiatry Referral B35.1 - Tinea unguium Cardiology Referral R55 - Syncope and collapse
--- OUTSIDE RECORDS SUMMARY | 2025-01-24 16:21 | XMS_ITS | Patient Health Record ---
Author Organization [facility] Address [address] [place] [address] Care Team Providers Care Furnace Setter Name Role Phone Hammad LOPEZ, Misha Primary Care Provider Cheryl Aguirre Unavailable [phone] Reason For Referral No Information Plan Of Treatment No Information Insurance Providers Payer Name Payer Address Payer Phone Subscriber Number Group Number Insured Name Patient Relationship to Insured Coverage Start Date Coverage End Date [facility] [address] [place], [place] [id number] Alisha Shaikh Self - patient is the insured
== END 2025-01-24 15:50 | disposition home or self-care (01) ==
LOC: HO.HMCH 14:28
PROVIDERS: Visit Provider Nurse Practitioner Family
DX: R55 Syncope and collapse (principal); R56.9 Unspecified convulsions

== ENCOUNTER 2025-03-07 13:58 | Outpatient (AMB) | payer OTHER, SELFPAY ==
--- NOTE | 2025-03-07 13:59 | MHC.OFFVIS ---
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 Moving forward, patient will be under care of Dr. Berrios as he is a rounding grant specialist this week. On December 27, a day after her friends surgery patient was helping cleaned the friend's surgical drain site. After while patient started feeling dizzy and unwell and does not remember the event itself and only recalls waking up with incontinence. Her friend witnessed that patient reported feeling dizzy and started having huffing and blowing like labored breathing after which her body became stiff and patient passed out. Her friend brought patient to the ground and no this patient had urinary incontinence. The friend states that her passing out lasted less than a minute. Patient was brought to the ER where her EKG was normal and troponin was negative. Patient states that she has never experienced any episodes like this in the past or since hospital discharge. Patient was also referred out to Neurology for evaluation of seizure. At this time, patient is waiting to schedule an appointment with them. Patient denies taking any medications. Patient does smoke half pack a day and marijuana. Patient denies any use of illicit drugs or alcohol. Patient is also reporting a longstanding unchanged intermittent chest pain which is random in nature lasting a short period between few sec to a minute. Patient is denying any associated symptoms of shortness of breath, palpitations, dizziness, orthopnea, PND, leg edema, presyncope, syncope. [facility] Medical History (Updated 03/07/25 @ 14:20 by Viet Treviño NP) Fungal infection of nail Dysplasia of cervix, low grade (KRISTIAN 1) Left ovarian cyst No known health problems Surgical History History of wisdom tooth extraction Social History Housing: Condominium Alcohol intake: current Alcohol intake frequency: a few times a week Patient Tobacco Use Status: Current everyday Tobacco user Cigarettes Per Day: 10 e-Cigarette/Vaping Use: Never Used Second Hand Smoke Exposure: No Substance Use Type: Marijuana service: No Current occupational status: employed Sexual orientation: Lesbian/Das/Homosexual Gender identity: Female Cognitive needs: No Hearing needs: No Vision needs: Yes (glasses) Female Reproductive History Menstrual Age of Menarche: 10 Review of Systems Const Denies chills, Denies fatigue, Denies fever(s), Denies frequent falls, Denies weakness, Denies weight gain and Denies weight loss ENT Denies dizziness Card Denies chest pain, Denies leg edema, Denies lightheadedness, Denies palpitations, Denies dyspnea, Denies dyspnea on exertion and Denies orthopnea Resp Denies cough, Denies dyspnea and Denies dyspnea on exertion GI Denies bloating and Denies change in bowel habits Musc Denies muscle weakness, Denies numbness and Denies tingling Neuro Denies dizziness, Denies frequent falls, Denies numbness, Denies tingling and Denies weakness Endo Denies fatigue and Denies palpitations Physical Exam Vital Signs: Last Vital Signs Pulse 61 03/07/25 14:02 BP 100/64 03/07/25 14:02 BMI result Body Mass Index 20.5 Const General: cooperative, healthy appearing, comfortable and no acute distress Orientation/consciousness: patient oriented x3 HEENT Head: Yes normal to inspection Neck Neck: Yes normal visual inspection, Yes trachea midline and Yes supple Chest Chest palpation & inspection: normal inspection of the chest Resp Effort & Inspection: normal respiratory effort Auscultation: clear to auscultation bilaterally, no crackles, no rales, no rhonchi and no wheezes Cardio Jugular venous distension: no JVD Palpation: normal PMI Rate: regular rate Rhythm: regular rhythm Heart sounds: S1 normal heart sound present, S2 normal heart sound present, no click, no gallops, no murmurs and no rubs Peripheral pulses: Peripheral pulses 2+ throughout GI Inspection: Yes normal to inspection Palpation (GI): Soft to palpation Auscultation: normal bowel sounds Skin General skin exam: no rashes or lesions noted Neuro General: patient oriented x3 Extrem General: Yes normal to inspection, No no pedal edema and No calf tenderness Psych Appearance: grossly normal Mental Status: mental status grossly normal Speech and movement: Normal speech and movement present Assessment & Plan Assessment & Plan (1) Syncope: Code(s): R55 - Syncope and collapse Category: Medical (2) Chest pain: Code(s): R07.9 - Chest pain, unspecified Category: Medical Plan Patient's syncopal episode presented with features concerning for procedure including body stiffening and urinary incontinence. Though a vasovagal trigger is possible given the circumstances, we will rule out cardiac etiology. We will get an echocardiogram to look for LV systolic and diastolic dysfunction as well as cardiac structural abnormalities. We will also get a 30 day Holter monitor to assess for any arrhythmias. A stress test we will also be ordered to evaluate for ischemic given her reports of chest pain. Further plans depending on findings. Consult heavily on smoking cessation and its risk for cardiovascular disease. Patient verbalizes understanding and states she will try to cut back. Advised on adequate hydration, orthostasis precautions, heart healthy diet, avoiding stimulants such as caffeinated beverages or alcohol, and stress mitigation strategies. Patient was also strongly advised to follow up with Neurology for seizure evaluation. Follow up after testings. In the interim, patient will call the office with any concerns or change in symptoms. This note was generated using voice recognition software. While every effort has been made to ensure accuracy and proper lead ruby on rails developer, there may be occasional errors that could affect the content or meaning of the described symptoms. Orders: Orders CA stress test Today R07.9 - Chest pain, unspecified CA echo transthoracic complete Today R07.9 - Chest pain, unspecified, R55 - Syncope and collapse ECG 30 day event monitor Today R55 - Syncope and collapse Coding Level of Care Code New Pt Level 4 (31110) Complex visit Add On G2211 Diagnoses Syncope R55 Chest pain R07.9 Time Spent (min) 33 Comment Time spent in reviewing the chart, test results, assessment, counseling and documentation.
[2025-03-07 14:02] VITALS: BP 100/64; PULSE 61; BMI 20.5
== END 2025-03-07 14:32 | disposition home or self-care (01) ==
LOC: HO.HCS 13:59
DX: R55 Syncope and collapse (principal); R07.9 Chest pain, unspecified
CPT/HCPCS: 99204; G2211